=== PATIENT | male | born 1990 | race Two or more races ===

== ENCOUNTER 2020-05-21 15:28 | Emergency (ER) | payer MEDICAID ==
[~2020-05-21] VITALS: Ht 185.4 cm; Wt 86.0 kg
[2020-05-21 15:50] VITALS: BP 127/81
[2020-05-21] MEDS ORDERED: SODIUM CHLORIDE 0.9% 1,000 ML IV ONE (16:30)
[2020-05-21 16:31] LABS: BASOPHILS % 0.2 % (0.0-2.0); EOSINOPHILS % 0.6 % (0.0-5.0); HEMATOCRIT. 40.9 % (42.0-52.0); HEMOGLOBIN. 13.8 g/dL (14.0-18.0); LYMPHOCYTES % 12.8 % (20.0-50.0); MEAN CORPUSCULAR HEMOGLOBIN 30.7 pg (28.0-32.0); MEAN CORPUSCULAR VOLUME 91.1 fL (80.0-94.0); MEAN PLATELET VOLUME 8.7 fl (7.4-10.4); MONOCYTES % 4.1 % (2.0-8.0); NEUTROPHILS % 82.3 % (40.0-76.0); PLATELET 266 x1000/uL (130-400); RED BLOOD CELL COUNT 4.49 mill/uL (4.7-6.1); RED CELL DISTRIBUTION WIDTH 13.1 % (11.6-14.6)
[2020-05-21 16:36] LABS: CHLORIDE 108 mEq/L (98-107)
[2020-05-21 16:41] LABS: ETHANOL BLOOD < 10 mg/dL
== END 2020-05-21 17:30 | disposition left against medical advice (07) ==
LOC: ER 15:28 → EDBD 15:28 → ER 17:30
DX: T40.411A Poisoning by fentanyl or fentanyl analogs, accidental (unintentional), initial encounter (principal); Y92.9 Unspecified place or not applicable; F19.10 Other psychoactive substance abuse, uncomplicated; F17.200 Nicotine dependence, unspecified, uncomplicated; F41.9 Anxiety disorder, unspecified; Z98.890 Other specified postprocedural states
CPT/HCPCS: 36415; 71045; 80053; 80320; 85025; 93005; 99285; J7030; G0480

== ENCOUNTER 2021-03-24 07:08 | Emergency (ER) | payer MEDICAID, OTHER ==
[~2021-03-24] VITALS: Ht 177.8 cm; Wt 77.0 kg
[2021-03-24] MEDS ORDERED: NALO4SPR BOTHNSTRLS (08:34)
[2021-03-24 08:52] VITALS: BP 107/60
== END 2021-03-24 08:54 | disposition home or self-care (01) ==
LOC: ER 07:08
DX: T40.2X1A Poisoning by other opioids, accidental (unintentional), initial encounter (principal); Y92.9 Unspecified place or not applicable; I49.8 Other specified cardiac arrhythmias
CPT/HCPCS: 93005; 99283